=== PATIENT | male | born 1975 | race Caucasian/White ===

== ENCOUNTER 2017-09-30 16:21 | Emergency (ER) | payer OTHER ==
[2017-09-30 16:54] LABS: Basophils % (Auto) 0.2 % (0.0-1.8); Eosinophils % (Auto) 0.3 % (0.0-4.3); Hematocrit 52.1 % (35.5-45.6); Hemoglobin 17.7 gm/dl (11.8-15.2); Mean Corpuscular HGB Conc 34 % (32-34); Mean Corpuscular Hemoglobin 31 pg (28-32); Mean Corpuscular Volume 92 fl (84-94); Platelet Count 213 K/mm3 (140-440); Red Blood Count 5.68 M/mm3 (3.65-5.03); Red Cell Distribution Width 14.2 % (13.2-15.2); White Blood Count 7.4 K/mm3 (4.5-11.0)
[2017-09-30 17:02] LABS: Urine Drugs of Abuse Note Disclamer
[2017-09-30 17:10] LABS: Anion Gap 23 mmol/L; BUN/Creatinine Ratio 13; Blood Urea Nitrogen 8 mg/dL (9-20); Calcium 9.1 mg/dL (8.4-10.2); Carbon Dioxide 23 mmol/L (22-30); Chloride 102.6 mmol/L (98-107); Glucose 72 mg/dL (75-100); Sodium 145 mmol/L (137-145)
[2017-09-30 17:35] LABS: Bilirubin,Urine NEG (Negative); Blood,Urine NEG (Negative); Ketones,Urine NEG (Negative); Leukocyte Esterase,Urine NEG (Negative); Nitrite,Urine NEG (Negative); Protein,Urine <15 mg/dL mg/dL (Negative); Urobilinogen,Urine < 2.0 mg/dL (<2.0)
[2017-09-30] MEDS ORDERED: NACL 0.9% 1000 ML 1,000 ML IV ONE (17:38)
[2017-09-30] MEDS ORDERED: VITAMIN B-1 100 MG, FOLVITE 1 MG, INFUVITE 10 ML in NACL 0.9% 1000 ML 1,000 ML IV ONE (18:38)
--- NOTE | 2017-09-30 21:00 | Emergency Department Report ---
HPI - General Chief Complaint: Alcohol Time Seen by Provider: 09/30/17 17:02 - HPI HPI: This is a 42-year-old male presents to the emergency department via EMS after he was found laying [place] the [place] [address]. The patient smelled of alcohol and does admit to heavy alcohol use this afternoon. 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 He currently has no complaints. He appears to understand the reasoning for keeping him in the emergency department and giving him fluid and multivitamins. He says that there is no family or friends that are able to come and get him and take responsibility for him from the emergency department. He denies alcoholism. He denies any past medical history. The patient says that he got drunk and does not remember ending up on the side of the road. ED Past Medical Hx - Past Medical History Previous Medical History?: No - Surgical History Past Surgical History?: No - Social History Smoking Status: Never Smoker Substance Use Type: Alcohol ED Review of Systems ROS: Stated complaint: ETOH Other details as noted in HPI Comment: All other systems reviewed and negative Constitutional: denies: chills, fever Eyes: denies: eye pain, eye discharge, vision change ENT: denies: ear pain, throat pain Respiratory: denies: cough, shortness of breath, wheezing Cardiovascular: denies: chest pain, palpitations Gastrointestinal: denies: abdominal pain, nausea, diarrhea Genitourinary: denies: urgency, dysuria Musculoskeletal: denies: back pain, joint swelling, arthralgia Skin: denies: rash, lesions Neurological: denies: headache, weakness, paresthesias Physical Exam - Physical Exam Vital Signs: Vital Signs 09/30/17 19:03 Temperature 98.1 F Pulse Rate 72 Respiratory 18 Rate Blood Pressure 122/68 [Right] O2 Sat by Pulse 98 Oximetry Physical Exam: GENERAL: The patient is well-developed well-nourished. HENT: Normocephalic. Atraumatic. Patient has moist mucous membranes. EYES: Extraocular motions are intact. Pupils equal reactive to light bilaterally. NECK: Supple. Trachea is midline. CHEST/LUNGS: Clear to auscultation. There is no respiratory distress noted. HEART/CARDIOVASCULAR: Regular. There is no tachycardia. There is no gallop rub or murmur. ABDOMEN: Abdomen is soft, nontender. Patient has normal bowel sounds. There is no abdominal distention. SKIN: Skin is warm and dry. NEURO: The patient is awake, alert, and oriented but he does appear intoxicated. The patient is cooperative. The patient has no focal neurologic deficits. The patient has normal speech and gait. Cranial nerves II-12 grossly intact. MUSCULOSKELETAL: There is no tenderness or deformity. There is no limitation range of motion. There is no evidence of acute injury. ED Course Vital Signs 09/30/17 19:03 Temperature 98.1 F Pulse Rate 72 Respiratory 18 Rate Blood Pressure 122/68 [Right] O2 Sat by Pulse 98 Oximetry - Consultations Consultation #1: The patient has been calm and appropriate but does appear slightly intoxicated. His blood alcohol level is 0.31. He does not show any signs of trauma. He is awake and AAO 3. Since the patient does not have anybody who can come pick him up and take responsibility for him, we will give him IV fluid resuscitation and watch him in the emergency department until he gets to a legal or more reasonable alcohol level. 09/30/17 20:57 ED Medical Decision Making - Lab Data Result diagrams: 09/30/17 16:34 09/30/17 16:34 - Medical Decision Making Patient presented after he was found sleeping on the side of the road. He was found to be intoxicated and had a blood alcohol level of 0.31. The rest of his labs are unremarkable. IV was placed and he was given a banana bag and further IV resuscitation. He was signed out to my colleague to follow his blood alcohol level or evaluate him for clinical sobriety and it appears that he was discharged home at about 1 AM. The patient was awake and alert and with a high blood alcohol level like he had it appears as if his sleeping on the side of the road was most likely secondary to the alcohol as opposed to some other type of neurological event. There is no signs of any head or physical trauma and therefore did not feel a CT of the head was necessary at this time. His vital signs were stable throughout his ED course. Critical Care Time: No Critical care attestation.: If time is entered above; I have spent that time in minutes in the direct care of this critically ill patient, excluding procedure time. ED Disposition Clinical Impression: Alcohol abuse Alcohol intoxication Qualifiers: Complication of substance-induced condition: uncomplicated Qualified Code(s): F10.920 - Alcohol use, unspecified with intoxication, uncomplicated Disposition: DC-01 TO HOME OR SELFCARE Is pt being admited?: No Condition: Stable Instructions: Alcohol Intoxication (ED), Abuse of Alcohol (ED) Additional Instructions: Please follow up with a primary care physician in the next few days. Return to the emergency Department with any worsening of your symptoms or any acute distress. Please try and stay away from any alcohol use. Referrals: PRIMARY CAREMD [Primary Care Provider] - 3-5 Days DAISY LOYA MD [Staff Physician] - 3-5 Days [facility] [Outside] - 3-5 Days Print Language: HONG K[place]ER
--- NOTE | 2017-10-01 00:04 | Event Note ---
Date: 10/01/17 I have evaluated the patient is able to walk steady and tolerate oral food I will send patient home as he is clinically sober. 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 Additional verbal discharge instructions were given
[2017-10-01 02:34] VITALS: BP 120/78
== END 2017-10-01 01:00 | disposition home or self-care (01) ==
LOC: ED 16:21
DX: F10.129 Alcohol abuse with intoxication, unspecified (principal)
CPT/HCPCS: 36415; 80048; 80307; 81001; 85025; 96361; 96365; 99284; G0480; J3411; J7030; 80320